=== PATIENT | male | born 1990 | race Asian ===

== ENCOUNTER 2017-07-25 13:26 | Outpatient (CLI) | payer BC | END 2017-07-25 14:30 | disposition home or self-care (01) | LOC: RAD 13:26 | DX: M62.830 Muscle spasm of back (principal); M25.572 Pain in left ankle and joints of left foot ==

== ENCOUNTER 2018-09-17 11:13 | Outpatient (CLI) | payer BC | END 2018-09-17 19:48 | disposition home or self-care (01) | LOC: MRI 11:13 | DX: M25.512 Pain in left shoulder (principal) ==

== ENCOUNTER 2022-02-02 09:19 | Outpatient (CLI) | payer BC ==
[2022-02-02 10:02] LABS: PLATELET COUNT 183 K/uL (142-355)
[2022-02-02 10:07] LABS: POTASSIUM 4.1 mmol/L (3.6-5.2)
== END 2022-02-02 19:18 | disposition home or self-care (01) ==
LOC: LABW 09:19
PROVIDERS: ATTEND Nurse Practitioner Family
DX: R07.89 Other chest pain (principal)
CPT/HCPCS: 36415; 80053; 82550; 82553; 84484; 85027; 93005